=== PATIENT | male | born 2005 | race African-American/Black ===

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

== ENCOUNTER 2024-03-12 20:45 | Emergency (ER) | payer OTHER, SELFPAY ==
[2024-03-12] MEDS ORDERED: Ventolin HFA Inhaler 60 PUFF INHALER ONE (23:22)
[2024-03-12] MEDS ORDERED: predniSONE 20 MG TAB ONE (23:22)
== END 2024-03-13 00:21 | disposition home or self-care (01) ==
LOC: CSHERS 20:45
DX: J45.901 Unspecified asthma with (acute) exacerbation (principal); F17.290 Nicotine dependence, other tobacco product, uncomplicated
CPT/HCPCS: 71045; J7512